=== PATIENT | female | born 1945 | race Caucasian/White ===

== ENCOUNTER → 2017-02-25 | Outpatient (CLI) | payer MEDICARE, OTHER ==
[~2017-02-25] MED LIST: ASP81TEC PO; NIAC1CAP PO
== END ==
LOC: CARD 12:44
PROVIDERS: ATTEND Physician Assistant
DX: I65.23 Occlusion and stenosis of bilateral carotid arteries (principal); R01.2 Other cardiac sounds; E78.2 Mixed hyperlipidemia; I27.0 Primary pulmonary hypertension
CPT/HCPCS: 93306

== ENCOUNTER → 2017-02-25 | Outpatient (CLI) | payer MEDICARE, OTHER ==
--- NOTE | 2017-02-25 20:02 | Diagnostic Imaging Report ---
Bilateral screening mammogram 2D views with tomosynthesis The current study was also evaluated with a Computer Aided Detection (CAD) system. Indication: Screening. No current complaints stated on the questionnaire. COMPARISON: 08/18/15. FINDINGS: The breasts are composed of heterogeneously dense parenchyma which may decrease mammographic sensitivity. Benign-appearing calcifications are seen. Allowing for technique and positional differences, no suspicious change is seen. IMPRESSION: Dense breasts with no definite change. ACR BI-RADS Category 2: Benign findings. Result letter will be mailed to the patient. Note: At least 10% of breast cancer is not imaged by mammography. Dictated by: Dictated on workstation # [id number]
== END ==
LOC: RAD 12:48
PROVIDERS: ATTEND Nurse Practitioner Family
DX: Z12.31 Encounter for screening mammogram for malignant neoplasm of breast (principal)
CPT/HCPCS: 77067

== ENCOUNTER → 2017-07-31 | Outpatient (CLI) | payer MEDICARE, OTHER ==
--- NOTE | 2017-07-31 16:40 | Diagnostic Imaging Report ---
INDICATION: Pain and swelling to the DIP joint of the second finger. TIME OF EXAM: 03:32 p.m. FINDINGS: Three views of the left hand were obtained. There are significant degenerative changes at the DIP joint of the second finger. There is joint space narrowing present. Marginal osteophyte formation is present. There is moderate soft tissue swelling present. No definite central or marginal erosions are seen. Milder degenerative changes involving multiple interphalangeal joints of the third through fifth fingers are seen. The metacarpals are intact. MCP joints are unremarkable. Carpus is unremarkable. 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 No acute bony abnormality is detected. Dictated by: Dictated on workstation # [id number]
== END ==
LOC: RAD 14:59
PROVIDERS: ATTEND Nurse Practitioner Family
DX: M19.042 Primary osteoarthritis, left hand (principal)
CPT/HCPCS: 73140

== ENCOUNTER → 2018-02-10 | Outpatient (CLI) | payer MEDICARE, OTHER | LOC: CARD 08:34 | PROVIDERS: ATTEND Physician Assistant | DX: I65.29 Occlusion and stenosis of unspecified carotid artery (principal); R01.2 Other cardiac sounds; E78.2 Mixed hyperlipidemia; I27.20 Pulmonary hypertension, unspecified; I08.2 Rheumatic disorders of both aortic and tricuspid valves | CPT/HCPCS: 93306 ==

== ENCOUNTER → 2020-02-10 | Outpatient (CLI) | payer MEDICARE ==
[~2020-02-10] VITALS: Ht 157 cm; Wt 77.0 kg
[~2020-02-10] MED LIST changes: +CATHETER FLUSH 10 ML SYR IV PRN; +REGADENOSON 0.4 MG/5 ML SYR (LEXISCAN) IV ONE
[2020-02-10 12:37] VITALS: BP 189/95
--- NOTE | 2020-02-10 14:12 | Cardiology Stress Test Report ---
Stress Test Report Date of Procedure/Referring: Date of Procedure: Feb 10, 2020 PCP Patrica Agudelo MD Admitting Physician Fern Whitley MD Indications: Chest pain Baseline Heart Rate: 75 Baseline Blood Pressure: Blood Pressure Systolic: 189 Blood Pressure Diastolic: 95 Baseline Vitals Vital Signs Date Time Temp Pulse Resp B/P (MAP) Pulse Ox O2 Delivery O2 Flow Rate FiO2 02/10/20 12:37 68 16 189/95 (126) 98 Room Air Baseline EKG: Baseline EKG: NSR Summary After explaining the procedure to the patient, she signed a consent and then brought to the stress nuclear laboratory. Patient received 0.4 mg Lexiscan for stress test, ECG, heart rate and blood pressure were monitored continuously. Resting and stress dose of radio tracer were injected, imaging was acquired and reviewed in short axis, horizontal long axis and vertical long axis views. TID: 1.03 SSS: 1 SDS: 1 EF: 83 1. Patient tolerated Lexiscan well 2. No ischemia or infarction on SPECT images 3. Normal LV size, EF 83 percent PATRICA AGUDELO MD Feb 10, 2020 14:12
== END ==
LOC: CARD 10:30
PROVIDERS: ATTEND Internal Medicine Cardiovascular Disease
DX: I08.3 Combined rheumatic disorders of mitral, aortic and tricuspid valves (principal); E78.2 Mixed hyperlipidemia; I65.29 Occlusion and stenosis of unspecified carotid artery
CPT/HCPCS: 78452; 93017; 93306; A9502

== ENCOUNTER → 2020-05-23 | Outpatient (CLI) | payer MEDICARE ==
[~2020-05-23] MED LIST changes: -CATHETER FLUSH 10 ML SYR IV PRN; -REGADENOSON 0.4 MG/5 ML SYR (LEXISCAN) IV ONE
--- NOTE | 2020-05-23 14:29 | Diagnostic Imaging Report ---
INDICATION: Neck pain. COMPARISON: None FINDINGS: Frontal, lateral, and open-mouth radiographic views of the cervical spine were obtained. Cervical spine is seen down to the C7-T1 level on the lateral view. Evaluation of static alignment shows slight grade 1 anterolisthesis at C2-C3, C3-C4, C4-C5, and C6-C7. There is no evidence of jumped facets. Open-mouth view shows normal C1-C2 alignment. Vertebral body heights are maintained. There is no acute fracture. There are moderate multilevel degenerative changes consistent with intervertebral disc height loss with anterior and posterior disc osteophyte complex formations. Surrounding soft tissue structures are unremarkable. Included portions of the lung apices are clear. There is calcified carotid atherosclerosis. IMPRESSION: 1. No acute fracture or dislocation in the cervical spine. 2. Moderate multilevel degenerative changes. Dictated by: Dictated on workstation # [id number]
== END ==
LOC: RAD 13:42
PROVIDERS: ATTEND Nurse Practitioner Family
DX: M47.812 Spondylosis without myelopathy or radiculopathy, cervical region (principal)
CPT/HCPCS: 72040

== ENCOUNTER → 2020-07-21 | Outpatient (CLI) | payer MEDICARE ==
--- NOTE | 2020-07-21 16:32 | Diagnostic Imaging Report ---
INDICATION: Edema COMPARISON: 03/18/2009 TECHNIQUE: 2 radiographs of the chest dated 07/21/2020. FINDINGS: The cardiac silhouette is within normal limits in size. No significant pulmonary vascular congestion. The lungs are clear without focal pulmonary opacity. No significant pleural effusion. No pneumothorax. S-shaped curvature of the visualized thoracolumbar spine. Mild scattered osseous degenerative changes. No acute osseous abnormality. Surgical clips within the right upper quadrant of the abdomen. Postsurgical changes within the right shoulder. IMPRESSION: No acute cardiopulmonary abnormality with postsurgical and chronic findings as above. Dictated by: Dictated on workstation # [id number]
== END ==
LOC: RAD 11:47
PROVIDERS: ATTEND Nurse Practitioner Family
DX: L52 Erythema nodosum (principal); M47.815 Spondylosis without myelopathy or radiculopathy, thoracolumbar region; R60.0 Localized edema
CPT/HCPCS: 71046

== ENCOUNTER → 2020-07-21 | Outpatient (CLI) | payer MEDICARE | LOC: CANPRECLI → RAD | PROVIDERS: ATTEND Family Medicine ==

== ENCOUNTER 2020-12-03 12:25 | Emergency (ER) | payer MEDICARE ==
[~2020-12-03] VITALS: Ht 157 cm; Wt 70.2 kg
[2020-12-03 12:55] LABS: BASOPHILS % (AUTO) 0 % (0-10); EOSINOPHILS # (AUTO) 0.1 10^3/uL (0.0-0.3); EOSINOPHILS % (AUTO) 1 % (0-10); HEMATOCRIT 38 % (35-52); HEMOGLOBIN 12.2 g/dL (11.5-16.0); LYMPHOCYTES # (AUTO) 0.8 10^3/uL (1.0-4.0); LYMPHOCYTES % (AUTO) 13 % (12-44); MEAN CORPUSCULAR HEMOGLOBIN 30 pg (25-34); MEAN CORPUSCULAR HGB CONC 32 g/dL (32-36); MEAN CORPUSCULAR VOLUME 91 fL (80-99); MEAN PLATELET VOLUME 9.6 fL (9.0-12.2); MONOCYTES # (AUTO) 0.4 10^3/uL (0.0-1.0); MONOCYTES % (AUTO) 7 % (0-12); NEUTROPHILS # (AUTO) 4.6 10^3/uL (1.8-7.8); NEUTROPHILS % (AUTO) 78 % (42-75); PLATELET COUNT 200 10^3/uL (130-400); WHITE BLOOD COUNT 5.8 10^3/uL (4.3-11.0)
[2020-12-03 13:07] LABS: ALBUMIN 4.2 GM/DL (3.2-4.5); POTASSIUM 3.6 MMOL/L (3.6-5.0)
[2020-12-03 13:08] LABS: CALCIUM 9.2 MG/DL (8.5-10.1)
[2020-12-03 13:10] LABS: TOTAL PROTEIN 7.3 GM/DL (6.4-8.2)
[2020-12-03 13:11] LABS: BILIRUBIN,TOTAL 0.6 MG/DL (0.1-1.0)
[2020-12-03 13:13] LABS: CREATININE SERUM 0.61 MG/DL (0.60-1.30)
[2020-12-03] MEDS ORDERED: meTOprolol TARTRATE 25 MG (LOPRESSOR) TABLET PO ONE (13:30)
[2020-12-03 13:36] LABS: TSH (THYROID ANALYZER) 0.56 UIU/ML (0.35-4.94)
[2020-12-03 13:38] LABS: FREE T4 (FREE THYROXINE) 1.09 NG/DL (0.70-1.48)
--- NOTE | 2020-12-03 14:16 | ED Cardiac General ---
History of Present Illness General Chief Complaint: Cardiac/General Problems Stated Complaint: POST OP,HIGH BP 184/88,HEADACHES Nursing Triage Note: PT PRESENTS TO THE ED C/O HIGH BLOOD PRESSURE AND HEADACHE THAT ONSET YESTERDAY EVENING AND HAS INCREASED DESPITE HER TAKING HER MEDS TODAY. PT HAD A BLOCKAGE IN R CAROTID SURGICALLY REMOVED THIS SATURDAY. Source: patient Exam Limitations: no limitations History of Present Illness Date Seen by Provider: Dec 03, 2020 Time Seen by Provider: 12:38 Initial Comments This 75-year-old woman presents to the emergency room with complaints of hypertension and headache after having right CEA surgery by Dr. Tilley at [place] on November 30. She customarily has a low adorable blood pressure but her blood pressure on arrival was 204/106. She denies use of any stimulants, excessive salts, illicit drug use, etc. Allergies and Home Medications Allergies Coded Allergies: No Known Drug Allergies (Verified Allergy, Unknown, 03/16/09) Home Medications Aspirin 81 Mg Tabec, 81 MG PO DAILY, (Reported) Metoprolol Tartrate 25 Mg Tablet, 25 MG PO BID Prescribed by: AMADA VILLALTA on 12/03/20 1524 Niacin/Inositol Niacinate 1 Each Capsule, 1 EACH PO DAILY, (Reported) Patient Home Medication List Home Medication List Reviewed: Yes Review of Systems Review of Systems Constitutional: no symptoms reported EENTM: No Symptoms Reported Respiratory: No Symptoms Reported Cardiovascular: See HPI Gastrointestinal: No Symptoms Reported Genitourinary: No Symptoms Reported Musculoskeletal: no symptoms reported Skin: no symptoms reported Psychiatric/Neurological: See HPI Endocrine: No Symptoms Reported Hematologic/Lymphatic: No Symptoms Reported Past Kbetbun-Tzjbzb-Mmhkzv Hx Patient Social History Tobacco Use?: No Substance use?: No Alcohol Use?: No Immunizations Up To Date Influenza Vaccine Up-to-Date: Yes; Up-to-Date Past Medical History Surgery/Hospitalization HX: R CEA FOR 90% BLOCKAGE Surgeries: Yes Vascular Surgery (Right CEA) Respiratory: No Cardiac: Yes High Cholesterol Neurological: No Reproductive Disorders: No Genitourinary: No Gastrointestinal: No Musculoskeletal: No Endocrine: No HEENT: No Cancer: No Did You Recieve Any Treatments: No Psychosocial: No Integumentary: No Physical Exam Vital Signs Vital Signs - First Documented 12/03/20 12:35 Temp 36.1 Pulse 92 Resp 18 B/P (MAP) 204/106 (138) Pulse Ox 99 O2 Delivery Room Air Capillary Refill : Less Than 3 Seconds Height, Weight, BMI Height: 0'63.00" Weight: 169lbs. oz. [id number]; 28.00 BMI Method: General Appearance: No Apparent Distress, WD/WN HEENT: PERRL/EOMI, Normal ENT Inspection Neck: Other (Well-healing right CEA incision with mild localized edema) Respiratory: Lungs Clear, Normal Breath Sounds, No Accessory Muscle Use Cardiovascular: Regular Rate, Rhythm, No Edema, Systolic Murmur Gastrointestinal: Normal Bowel Sounds, Non Tender, Soft Extremity: Normal Inspection, No Pedal Edema Neurologic/Psychiatric: Alert, Oriented x3, No Motor/Sensory Deficits, Normal Mood/Affect, managing supervisor II-XII Norm as Tested Skin: Normal Color, Warm/Dry Progress/Results/Core Measures Results/Orders Lab Results Laboratory Tests Test 12/03/20 12:45 Range/Units White Blood Count 5.8 4.3-11.0 10^3/uL Red Blood Count 4.14 3.80-5.11 10^6/uL Hemoglobin 12.2 11.5-16.0 g/dL Hematocrit 38 35-52 % Mean Corpuscular Volume 91 80-99 fL Mean Corpuscular Hemoglobin 30 25-34 pg Mean Corpuscular Hemoglobin Concent 32 32-36 g/dL Red Cell Distribution Width 13.3 10.0-14.5 % Platelet Count 200 130-400 10^3/uL Mean Platelet Volume 9.6 9.0-12.2 fL Immature Granulocyte % (Auto) 1 % Neutrophils (%) (Auto) 78 H 42-75 % Lymphocytes (%) (Auto) 13 12-44 % Monocytes (%) (Auto) 7 0-12 % Eosinophils (%) (Auto) 1 0-10 % Basophils (%) (Auto) 0 0-10 % Neutrophils # (Auto) 4.6 1.8-7.8 10^3/uL Lymphocytes # (Auto) 0.8 L 1.0-4.0 10^3/uL Monocytes # (Auto) 0.4 0.0-1.0 10^3/uL Eosinophils # (Auto) 0.1 0.0-0.3 10^3/uL Basophils # (Auto) 0.0 0.0-0.1 10^3/uL Immature Granulocyte # (Auto) 0.0 0.0-0.1 10^3/uL Sodium Level 141 135-145 MMOL/L Potassium Level 3.6 3.6-5.0 MMOL/L Chloride Level 105 98-107 MMOL/L Carbon Dioxide Level 25 21-32 MMOL/L Anion Gap 11 5-14 MMOL/L Blood Urea Nitrogen 5 L 7-18 MG/DL Creatinine 0.61 0.60-1.30 MG/DL Estimat Glomerular Filtration Rate 96 BUN/Creatinine Ratio 8 Glucose Level 97 70-105 MG/DL Calcium Level 9.2 8.5-10.1 MG/DL Corrected Calcium 9.0 8.5-10.1 MG/DL Total Bilirubin 0.6 0.1-1.0 MG/DL Aspartate Amino Transf (AST/SGOT) 25 5-34 U/L Alanine Aminotransferase (ALT/SGPT) 26 0-55 U/L Alkaline Phosphatase 112 40-136 U/L B-Type Natriuretic Peptide 119.5 H <100.0 PG/ML Total Protein 7.3 6.4-8.2 GM/DL Albumin 4.2 3.2-4.5 GM/DL Free Thyroxine 1.09 0.70-1.48 NG/DL TSH Jerauld Testing 0.56 0.35-4.94 UIU/ML My Orders Orders - AMADA ORTEGA MD Cbc With Automated Diff (12/03/20 12:50) Comprehensive Metabolic Panel (12/03/20 12:50) Thyroid Analyzer (12/03/20 12:50) Free T4 (Free Thyroxine) (12/03/20 12:50) Ed Iv/Invasive Line Start (12/03/20 12:50) Metoprolol Tartrate (Ir) Tab (Lopressor (12/03/20 13:30) BNP (12/03/20 14:05) Medications Given in ED Current Medications Medications Dose Ordered Sig/Era Route Start Time Stop Time Status Last Admin Dose Admin Metoprolol Tartrate 25 mg ONCE ONCE PO 12/03/20 13:30 12/03/20 13:31 DC 12/03/20 13:30 25 MG Vital Signs/I&O 12/03/20 12:35 Temp 36.1 Pulse 92 Resp 18 B/P (MAP) 204/106 (138) Pulse Ox 99 O2 Delivery Room Air Blood Pressure Mean: 138 Progress Progress Note #1: Time: 14:19 Progress Note I discussed the situation with Dr. Tilley at [facility]. He recommended giving metoprolol tartrate 25 mg now and twice daily with a target systolic blood pressure less than 180. He suggested monitoring the patient for 2 hours after giving the initial dose here in the ER. Progress Note #2: Time: 15:36 Progress Note Majority of her systolic blood pressures have been in the 160s. Her last systolic blood pressure was 162 prior to discharge. She was instructed to take metoprolol twice daily and to increase her lisinopril to twice daily dosing. See discharge instructions for further discussion. Departure Impression Primary Impression: Hypertension Qualified Codes: I15.9 - Secondary hypertension, unspecified Additional Impression: Status post carotid surgery Disposition: 01 HOME, SELF-CARE Condition: Improved Departure-Patient Inst. Decision time for Depature: 15:21 Referrals: DEE LOAIZA MD (PCP/Family) Primary Care Physician Patient Instructions: High Blood Pressure in Adults Add. Discharge Instructions: Increase lisinopril to 5 mg twice daily. Start metoprolol twice daily as well. Follow-up with Dr. Tilley on Saturday. Please call his office first thing Saturday morning. If your blood pressure is above 180 on the top number please call Dr. Tilley thro [facility]. If you are unable to contact Dr. Tilley, you may call back to the [facility] emergency room. Avoid stimulants that may increase your blood pressure such as decongestant medications, excessive caffeine, diet pills, preworkout supplements, energy drinks, etc. Also avoid excessive salt in your diet. Call with any questions or concerns. Return to care if you have worsening symptoms.. All discharge instructions reviewed with patient and/or family. Voiced understanding. Scripts Metoprolol Tartrate (Metoprolol Tartrate) 25 Mg Tablet 25 MG PO BID, #60 TAB Prov: AMADA ORTEGA MD 12/03/20 Copy Copies To 1: DEE LOAIZA MD Copies To 2: PATRICA MANN MD, JOSHUA T MD Dec 03, 2020 14:16
[2020-12-03] MEDS ORDERED: METO-333 PO (15:24)
[2020-12-03 15:36] VITALS: BP 157/71
== END 2020-12-03 15:20 | disposition home or self-care (01) ==
LOC: EDUNIT# 12:25 → ER 12:30
DX: I10 Essential (primary) hypertension (principal); Z98.62 Peripheral vascular angioplasty status; Z79.82 Long term (current) use of aspirin
CPT/HCPCS: 36415; 80053; 83880; 84439; 84443; 85025

== ENCOUNTER → 2021-02-14 | Outpatient (CLI) | payer MEDICARE ==
[~2021-02-14] MED LIST changes: +METO-333 PO
[2021-02-14 16:39] LABS: BASOPHILS # (AUTO) 0.1 10^3/uL (0.0-0.1); BASOPHILS % (AUTO) 1 % (0-10); EOSINOPHILS # (AUTO) 0.3 10^3/uL (0.0-0.3); EOSINOPHILS % (AUTO) 6 % (0-10); HEMATOCRIT 37 % (35-52); HEMOGLOBIN 11.8 g/dL (11.5-16.0); LYMPHOCYTES # (AUTO) 1.3 10^3/uL (1.0-4.0); LYMPHOCYTES % (AUTO) 25 % (12-44); MEAN CORPUSCULAR HEMOGLOBIN 29 pg (25-34); MEAN CORPUSCULAR HGB CONC 32 g/dL (32-36); MEAN CORPUSCULAR VOLUME 90 fL (80-99); MEAN PLATELET VOLUME 9.3 fL (9.0-12.2); MONOCYTES # (AUTO) 0.4 10^3/uL (0.0-1.0); MONOCYTES % (AUTO) 7 % (0-12); NEUTROPHILS % (AUTO) 60 % (42-75); PLATELET COUNT 316 10^3/uL (130-400)
[2021-02-14 16:50] LABS: POTASSIUM 4.4 MMOL/L (3.6-5.0)
[2021-02-14 16:51] LABS: CALCIUM 9.6 MG/DL (8.5-10.1)
[2021-02-14 16:53] LABS: TOTAL PROTEIN 6.7 GM/DL (6.4-8.2)
[2021-02-14 16:54] LABS: BILIRUBIN,TOTAL 0.2 MG/DL (0.1-1.0)
[2021-02-14 16:56] LABS: CREATININE SERUM 0.67 MG/DL (0.60-1.30)
== END ==
LOC: CARD 16:00
PROVIDERS: ATTEND Family Medicine
DX: I08.0 Rheumatic disorders of both mitral and aortic valves (principal); Z98.62 Peripheral vascular angioplasty status
CPT/HCPCS: 36415; 80053; 85025; 87040; 93306

== ENCOUNTER → 2022-10-15 | Outpatient (CLI) | payer MEDICARE | LOC: CARD 12:51 | PROVIDERS: ATTEND Internal Medicine Cardiovascular Disease | DX: I35.1 Nonrheumatic aortic (valve) insufficiency (principal); I10 Essential (primary) hypertension | CPT/HCPCS: 93306 ==